=== PATIENT | male | born 1955 | race Two or more races ===

== ENCOUNTER 2024-01-20 07:28 | Emergency (ER) | payer MEDICAID, SELFPAY ==
[2024-01-20] VITALS (10 sets, daily range): BP systolic 98–141; BP diastolic 62–75; PULSE 95–133; RESP 18–20; TEMP -11.7–39.4; O2SAT 95–100; BMI 19.6
--- NOTE | 2024-01-20 08:11 | EDNOTE_ITS ---
ED Male Genitalurinary RME/HPI General Chief complaint: Urogenital-Male Stated complaint: CATHETER PROBLEMS Time Seen by Provider: 01/20/24 07:37 Arrival date/time: 01/20/24 07:28 RME / HPI RME / HPI Narrative: 68 year old male with history of developmental delay, hypertension, hyperlipidemia, bipolar disorder presents to the ED BIBA from skilled nursing for fermin catheter problems today. Per medics, RN at the skilled nursing inserted a fermin catheter ~ 5:30 pm yesterday and noted only blood clots and blood to be draining, no urine. States the nurse attempted to irrigate with no improvement and the fermin catheter was removed. Reportedly this morning patient continues to bleed from his penis, prompting ED visit. Related Data Home Medications ?Medication ?Instructions ?Recorded ?Confirmed Acetaminophen * (TYLENOL *) 2 tab PO Q6HR PRN PAIN #0 tabs 05/26/13 05/07/22 Bisacodyl * (DULCOLAX *) 10 mg PO QDAY PRN CONSTIPATION ##0 05/26/13 05/07/22 Calcium Carbonate/Vitamin D3 1 ea PO TID #0 tabs 05/26/13 05/07/22 (Os-Jhonatan 500+D3 Caplet) chlorhexidine gluconate 0.12 % 15 ml PO QDAY ##0 05/26/13 05/07/22 mouthwash risedronate 35 mg tablet (Actonel) 35 mg PO EVERY TUES #0 tabs 05/26/13 01/20/24 sodium phosphates 19 gram-7 118 ml TN X1 PRN CONSTIPATION ##0 05/26/13 05/07/22 gram/118 mL enema (Fleet Enema) docusate sodium 250 mg capsule 250 mg PO BID #0 caps 05/09/16 05/07/22 (DOK) lactulose 20 gram/30 mL oral 1 ml PO HS ##0 05/09/16 05/07/22 solution polyethylene glycol 3350 17 gram 1 pkt PO HS ##0 05/09/16 01/20/24 oral powder packet (Miralax) simvastatin 20 mg tablet (Zocor) 20 mg PO HS #0 tabs 05/09/16 01/20/24 amitriptyline 25 mg tablet 25 mg PO QDAY 05/07/22 01/20/24 melatonin 1 mg tablet 3 mg PO HS 05/07/22 01/20/24 terbinafine HCl 250 mg tablet 250 mg PO QDAY 05/07/22 05/07/22 finasteride 5 mg tablet 5 mg PO DAILY 01/20/24 01/20/24 metoprolol succinate 25 mg 25 mg PO DAILY 01/20/24 01/20/24 tablet,extended release 24 hr tamsulosin 0.4 mg capsule 0.4 mg PO BID 01/20/24 01/20/24 Previous Rx's ?Medication ?Instructions ?Recorded cephalexin 500 mg capsule 500 mg PO QID #14 caps 05/21/22 cephalexin 500 mg capsule 500 mg PO BID #3 caps 01/20/24 Allergies Allergy/AdvReac Type Severity Reaction Status Date / Time No Known Allergies Allergy Verified 02/25/23 16:44 Review of Systems Review of Systems ROS Unobtainable: unobtainable due to medical condition (Developmental delay ) Past Medical History Past Medical History CARDIAC: Positive Hypercholesterolemia GASTROINTESTINAL: Positive Gastrointestinal Disorders (constipation, duodentisis) MUSCULOSKELETAL: Positive Musculoskeletal Disorders and Osteoporosis HEMATOLOGIC: Positive Clotting Problems (thrombocytopenia) PSYCHO/SOCIAL: Positive Bipolar Disorder Social History SMOKING STATUS: Never smoker ED Exam Narrative Physical exam: GENERAL APPEARANCE: Moans, nonverbal, bed bound HEENT: NC, AT. MMM. EOMI, clear conjunctiva, oropharynx clear. NECK: Supple without lymphadenopathy. No stiffness or restricted ROM. HEART: Normal rate and regular rhythm, normal S1/S1, no m/r/g LUNGS: CTAB, moving air well. No crackles or wheezes are heard. ABDOMEN: Soft, nontender, nondistended with good bowel sounds heard. BACK: No midline C/T/L spine pain or deformity, No CVAT, no obvious deformity. EXTREMITIES: Without cyanosis, clubbing or edema. MUSCULOSKELETAL: diffuse muscle atrophy, no chest tenderness NEUROLOGICAL: Moans, nonverbal, diffuse muscle atrophy Skin: Warm and dry without any rash. Course Quality Measures Current suspected stage: sepsis Possible source: unknown Blood cultures ordered: completed in ED Antibiotic ordered: No Pertinent labs: 01/20/24 11:16 Lactic Acid 1.9 mMol/L (0.4-2.0) Procalcitonin 9.94 H ng/ml (0.0-0.49) sepsis Orders Category Date Time Status Bedside COVID-19 Antigen Test NOW Care 01/20/24 11:09 Active Bedside Influenza A&B Antigen Test NOW Care 01/20/24 11:[address] Screening NOW Care 01/20/24 12:[address] Screening NOW Care 01/20/24 14:00 Active [place] to [place] Routine Care 01/20/24 08:[address] abdomen pelvis w con Stat Exams 01/20/24 12:[address] chest w con Stat Exams 01/20/24 14:00 Completed XR chest 1V Stat Exams 01/20/24 11:08 Completed XR chest 1V Stat Exams 01/20/24 12:27 Completed Blood Culture (Lab) Stat Lab 01/20/24 11:14 Received CBC Stat Lab 01/20/24 11:16 Completed CMP [Comprehensive Metabolic Panel] Stat Lab 01/20/24 11:16 Completed Lactate (Lactic Acid) Stat Lab 01/20/24 11:16 Completed Partial Thromboplastin Time Stat Lab 01/20/24 11:16 Completed Procalcitonin Stat Lab 01/20/24 11:16 Completed Prothrombin Time with INR Stat Lab 01/20/24 11:16 Completed RSV [Respiratory Syncytial Virus Ag] Stat Lab 01/20/24 12:05 Completed Urinalysis Stat Lab 01/20/24 12:32 Completed Acetaminophen Tab [Tylenol Tab] Med 01/20/24 11:44 Discontinued 650 mg PO X1 ONE Ibuprofen Tab [Motrin Tab] Med 01/20/24 14:01 Discontinued 400 mg PO X1 ONE Lidocaine Jelly 2% Urojet [Xylocaine Jelly 2% Urojet] Med 01/20/24 09:12 Discontinued See Dose Instructions TOP X1 ONE Sodium Chloride 0.9% 1000 ml [Ns] 1,000 ml Med 01/20/24 11:08 Discontinued IV 999 mls/hr Reevaluation(s) Reevaluation #1: Clear yellow urine in fermin bag. Attempted rectal disimpaction, stool is too soft, will order enema. Time: 13:30 Reevaluation #2: I have reviewed the CT findings and the thyroid mass with the field coordinator. He is followed at [facility] and work his recommended to follow up for further testing, including laboratory testing and possible biopsy. Patient remains clinically stable throughout the emergency department visit. Re-assessment at the time of disposition demonstrates that the patient is in no acute distress. We reviewed all the results, analysis, and treatment plans. Patient is amenable to discharge. Strict return precautions were outlined. Patient was discharged in stable condition. Time: 16:21 Vital Signs Vital signs: Vital Signs Temperature 99.0 F 01/20/24 07:46 Pulse Rate 108 H 01/20/24 07:46 Respiratory Rate 20 01/20/24 07:46 Blood Pressure 141/75 H 01/20/24 07:46 Pulse Oximetry (%) 100 01/20/24 07:46 Oxygen Delivery Method Room Air 01/20/24 07:46 Pulse ox is 100% on room air which is adequate. Urogenital - Male MDM Narrative MDM Narrative:: IBrigette am scribing for and in the presence of Dr. Haines. Patient data External records reviewed:: [facility] previous records (I reviewed ED visit on 02/25/2023), EMS form and Retirement records ([facility] records) Clinical information provided by:: EMS (Provided prehospital course ) and field coordinator Social determinants that could affect healthcare access:: housing (Resides in skilled nursing) Patient has the following chronic illnesses:: developmental delay, bipolar disorder, hypertension, hyperlipidemia How is presenting disease/condition affected by chronic disease/condition?: exacerbated by Evaluation data The following diagnostics were reviewed and interpreted by me:: lab results Lab and/or radiology exams considered but not ordered:: None Interpretation Summary: Ordering Physician: Tavon Haines MD Date of Service: 01/20/24 Procedure(s): XR chest 1V Accession Number(s): [id number] cc: Tavon Haines MD; Dago Lemon MD; Gavin Sutton PA-C~ Examination: AP chest single view TECHNIQUE: AP portable supine chest single view Exam date and time: January 20, 2024 1117 hours INDICATIONS: Sepsis protocol FINDINGS: The film is rotated severely RPO Normal heart size There is opacity at the right apex Severe osteopenia with extensive glenohumeral joint ossification on the left IMPRESSION: Recommend follow-up true AP chest to exclude pneumonia right apex Dictated By:Dago Lemon MD Signed By:<Electronically signed by Dago Lemon MD in OV>01/20/24 1221 Ordering Physician: Tavon Haiens MD Date of Service: 01/20/24 Procedure(s): CT abdomen pelvis w con Accession Number(s): [id number] cc: Tavon Haines MD; Dago Lemon MD; Gavin Sutton PA-C~ Examination: CT abdomen with intravenous contrast CT pelvis with intravenous contrast 2-D coronal reconstructions 2-D sagittal reconstructions Date and time of exam:January 20, 2024 1214 hours Comparison May 21, 2022. INDICATIONS: Fever hematuria today with abdominal pain CTDI: vol (mGy) 10 DLP: (mGycm) 577 Technique: Multiple axial sections of the abdomen and pelvis have been obtained. 64 slice high-resolution scanner used. 3 mm axial sections have been obtained, post intravenous injection 60 cc Isovue-370 2-D sagittal, coronal reconstructions obtained. Low dose protocols were performed. One or more of the following dose reduction techniques were used; automated exposure control, adjustment of the mA and/or KV according to patient size, use of iterative reconstruction technique. Findings: No focal liver lesions No gallstones Spleen is not enlarged No pancreatic or adrenal mass No hydronephrosis Abundant stool throughout the colon, very large amounts of stool in the rectosigmoid Thickening of the rectal wall Urinary bladder is contracted Left hip bipolar hemiarthroplasty with satisfactory alignment Chronic osteoporotic compression T12 IMPRESSION: No renal or ureteral calculi, no hydronephrosis Large amounts of stool throughout the colon, very large amounts of stool in the rectosigmoid with proctitis pattern Dictated By: Dago Lemon MD Signed By: <Electronically signed by Dago Lemon MD in OV> 01/20/24 1334 Procedure(s): XR chest 1V Accession Number(s): [id number] cc: Tavon Haines MD; Dago Lemon MD; Gavin Sutton PA-C~ Examination: AP chest single view TECHNIQUE: AP portable supine chest single view Exam date and time: January 20, 2024 1259 hours Comparison January 20, 2004 1117 hours INDICATIONS: Sepsis today. FINDINGS: Prominent right superior mediastinal contour, uncertain etiology The trachea is actually displaced to the left secondary to this masslike area Mild prominence left ventricle Mild vascular IMPRESSION: Recommend CT chest post intravenous contrast follow-up to exclude right paratracheal mediastinal mass Dictated By: Dago Lemon MD = Procedure(s): CT chest w con Accession Number(s): [id number] cc: Tavon Haines MD; Dago Lemon MD; Gavin Sutton PA-C~ Examination: CT chest with intravenous contrast 2-D sagittal and coronal reconstructions Exam date and time: January 20, 2024 1505 hours INDICATIONS: Prominent right paratracheal mediastinal region on chest x-ray today CTDI:vol (mGy) 14.7 DLP: (mGycm) 516 Technique: Multiple axial sections of the thorax have been obtained. Sections have been obtained, 3 mm slice thickness. Mediastinal and lung density settings have been obtained. Intravenous contrast administered, 50 cc Isovue-300. 2-D sagittal, coronal images obtained. Low dose protocols were performed. One or more of the following dose reduction techniques were used; automated exposure control, adjustment of the mA and/or KV according to patient size, use of iterative reconstruction technique. Findings: Significantly enlarged right thyroid lobe extending substernal with multiple right thyroid nodules The enlarged right thyroid lobe is indenting and displacing the trachea to the left No thoracic aortic aneurysmal dilatation Pulmonary artery segments are not enlarged No paratracheal tracheobronchial or bronchopulmonary adenopathy 4 mm pulmonary nodule right upper lobe image 147 Atelectasis versus mild pneumonia right base Mild vascular congestion Moderate osteopenia IMPRESSION: Significantly enlarged right thyroid lobe extending substernal Multiple right thyroid nodules 4 mm pulmonary nodule right upper lobe, with this study as baseline recommend 6 month follow-up CT chest without contrast Atelectasis versus mild pneumonia right base Dictated By: Dago Lemon MD Medications / Prescriptions Medications or Prescriptions considered but not ordered:: None Medication administrations:: Medication Administration History Discontinued Medications Acetaminophen (Acetaminophen 325 Mg Tablet) 650 mg PO X1 ONE Stop: 01/20/24 11:45 Last Admin: 01/20/24 11:50 Dose: 650 mg Documented By: DENISE Sodium Chloride (Ns) 1,000 mls @ 999 mls/hr IV .Q1H1M ONE Stop: 01/20/24 12:08 Last Infusion: 01/20/24 13:23 Dose: Infused Documented By: Admin: 01/20/24 11:30 Dose: 999 mls/hr Documented By: DENISE Ibuprofen (Ibuprofen Tab 400 Mg Tablet) 400 mg PO X1 ONE Stop: 01/20/24 14:02 Last Admin: 01/20/24 14:11 Dose: 400 mg Documented By: DENISE Lidocaine HCl (Lidocaine Jelly 2% (Urojet) 10 Ml Tube) 0 ml TOP X1 ONE Stop: 01/20/24 09:13 Last Admin: 01/20/24 09:15 Dose: 10 ml Documented By: DENISE See above Consultations Consultation(s) initiated? (list below): No Diagnosis Urogenital Male Differential Diagnosis: urinary tract infection, acute retention of urine and other (Fermin catheter malfunction ) Most likely diagnosis given after review of the tests above:: UTI Mass of thyroid gland Admission Indicated Admission indicated?: not indicated Admission Request Was there a request for admission?: No Disposition Plan Disposition Plan: Discharge Discharge Attestation Discharge Attestation: The patient and all family members were given an opportunity to ask questions and understood the discharge instructions. Discharge instructions specifically effects, indications for sooner follow up or return to the emergency department, and the expected course of current diagnosis. Patient condition: Stable Discharge Plan Plan Patient Disposition: HOME (Self Care) Patient condition on transfer: Stable Prescriptions/Referrals Prescriptions/Med Rec: New cephalexin 500 mg capsule 500 mg PO BID Qty: 3 0RF No Action risedronate [Actonel] 35 MG tablet 35 mg PO EVERY TUES Qty: 0 Calcium Carbonate/Vitamin D3 (Os-Jhonatan 500+D3 Caplet) 1 EACH tablet 1 ea PO TID Qty: 0 Acetaminophen * (TYLENOL *) 325 MG tablet 2 tab PO Q6HR PRN (Reason: PAIN) Qty: 0 Patient Comments: FOR FEVER OR PAIN Fleet Enema 118 ML enema 118 ml TN X1 PRN (Reason: CONSTIPATION) Qty: 0 chlorhexidine gluconate 480 ML mouthwash 15 ml PO QDAY Qty: 0 Bisacodyl * (DULCOLAX *) 5 MG TABLET.DR 10 mg PO QDAY PRN (Reason: CONSTIPATION) Qty: 0 polyethylene glycol 3350 [Miralax] 12 EA powder in packet 1 pkt PO HS Qty: 0 simvastatin [Zocor] 20 MG tablet 20 mg PO HS Qty: 0 docusate sodium [DOK] 250 MG capsule 250 mg PO BID Qty: 0 lactulose 20 GM/30 ML syrup 1 ml PO HS Qty: 0 cephalexin 500 mg capsule 500 mg PO QID Qty: 14 0RF finasteride 5 mg tablet 5 mg PO DAILY tamsulosin 0.4 mg capsule 0.4 mg PO BID metoprolol succinate 25 mg tablet extended release 24 hr 25 mg PO DAILY terbinafine HCl 250 mg tablet 250 mg PO QDAY amitriptyline 25 mg tablet 25 mg PO QDAY melatonin 1 mg Tablet 3 mg PO HS Referrals: Gavin Sutton PA-C [Primary Care Provider] - In 1 week Problem List Clinical Impression: UTI (urinary tract infection), Mass of thyroid gland Patient/Caregiver Discharge Instructions Education Materials: Common Thyroid Problems, ED Bladder Infection, Male (Adult) Additional Instructions: Follow-up with your primary care doctor in 2 to 3 days for further testing for your thyroid and possible referral to a specialist. You can return to the emergency department sooner if symptoms worsen or if you notice any new, concerning issues Print Language: Sinhala Stand Alone Forms: Shayla Award Info., Patient Portal Info Letter
[2024-01-20] MEDS: LIDOCAINE JELLY 2% (Urojet) 10 ML TUBE TOP (09:15)
--- NOTE | 2024-01-20 11:08 | XR_ITS ---
Examination: AP chest single view TECHNIQUE: AP portable supine chest single view Exam date and time: January 20, 2024 1117 hours INDICATIONS: Sepsis protocol FINDINGS: The film is rotated severely RPO Normal heart size There is opacity at the right apex Severe osteopenia with extensive glenohumeral joint ossification on the left IMPRESSION: Recommend follow-up true AP chest to exclude pneumonia right apex
[2024-01-20 11:29] LABS: Lactate (Lactic Acid) 1.9 mMol/L (0.4-2.0)
[2024-01-20] MEDS: SODIUM CHLORIDE 0.9% 1000 ML 1,000 ML 999 ML IV (11:30)
[2024-01-20 11:33] LABS: Basophils % (Auto) 0 % (0-2.5); Eosinophils % (Auto) 0 % (0-10); Hematocrit 34.9 % (41.0-53.0); Hemoglobin 12.3 g/dL (13.5-16.0); Immature Granulocytes % (Auto) 1 % (0-0); Immature Granulocytes Auto 0.08 Thou/mm3 (0.00-0.00); Lymphocytes # (Auto) 0.2 Thou/mm3 (1.0-4.8); Lymphocytes % (Auto) 2 % (10-50); Mean Corpuscular HGB Conc 35.2 g/dl (31.0-37.0); Mean Corpuscular Hemoglobin 31.1 pg (25.0-35.0); Mean Corpuscular Volume 88 fL (80-100); Monocytes # (Auto) 0.1 Thou/mm3 (0.0-0.8); Monocytes % (Auto) 1 % (0-12); Neutrophils # (Auto) 15.6 Thou/mm3 (1.8-7.7); Neutrophils % (Auto) 97 % (37-80); Nucleated Red Blood Cell % 0 /100 WBC (0); Platelet Count 194 Thou/mm3 (140-440); RDW Standard Deviation 43.1 fL (35.1-43.9); Red Blood Count 3.95 Miln/mm3 (4.50-5.90)
[2024-01-20] MEDS: ACETAMINOPHEN 325 MG TABLET 650 MG PO (11:50)
[2024-01-20 11:52] LABS: Partial Thromboplastin Time 26.7 Seconds (22.0-36.0); Prothrombin Time 11.3 Seconds (9.0-12.2)
[2024-01-20 12:00] LABS: Alanine Aminotransferase 14 U/L (10-49); Albumin/Globulin Ratio 1.4 (1.2-2.2); Alkaline Phosphatase 101 U/L (46-116); Anion Gap 7 (7-16); Aspartate Amino Transferase 21 U/L (0-34); BUN/Creatinine Ratio 20 Ratio (12-20); Bilirubin,Total 0.5 mg/dL (0.3-1.2); Blood Urea Nitrogen 14 mg/dL (9-23); Calcium 10.4 mg/dL (8.3-10.6); Calcium (Corrected) 10.4 mg/dL (8.5-10.1); Carbon Dioxide 24.5 mMol/L (20.0-31.0); Chloride 103 mMol/L (98-107); Creatinine (Component) 0.7 mg/dL (0.6-1.3); Estimated Creatinine Clearance 68.6 mL/min (>60); Globulin 2.9 gm/dL (2.3-3.5); Glucose 135 mg/dL (74-106); Osmolality,Calculated 270 (275-295); Potassium 3.8 mMol/L (3.4-5.1); Procalcitonin 9.94 ng/ml (0.0-0.49); Sodium 134 mMol/L (136-145); Total Protein 6.9 gm/dL (5.7-8.2); eGFR > 60 See Note
--- NOTE | 2024-01-20 12:04 | XR_ITS ---
Examination: CT abdomen with intravenous contrast CT pelvis with intravenous contrast 2-D coronal reconstructions 2-D sagittal reconstructions Date and time of exam:January 20, 2024 1214 hours Comparison May 21, 2022. INDICATIONS: Fever hematuria today with abdominal pain CTDI: vol (mGy) 10 DLP: (mGycm) 577 Technique: Multiple axial sections of the abdomen and pelvis have been obtained. 64 slice high-resolution scanner used. 3 mm axial sections have been obtained, post intravenous injection 60 cc Isovue-370 2-D sagittal, coronal reconstructions obtained. Low dose protocols were performed. One or more of the following dose reduction techniques were used; automated exposure control, adjustment of the mA and/or KV according to patient size, use of iterative reconstruction technique. Findings: No focal liver lesions No gallstones Spleen is not enlarged No pancreatic or adrenal mass No hydronephrosis Abundant stool throughout the colon, very large amounts of stool in the rectosigmoid Thickening of the rectal wall Urinary bladder is contracted Left hip bipolar hemiarthroplasty with satisfactory alignment Chronic osteoporotic compression T12 IMPRESSION: No renal or ureteral calculi, no hydronephrosis Large amounts of stool throughout the colon, very large amounts of stool in the rectosigmoid with proctitis pattern
--- NOTE | 2024-01-20 12:15 | PC.NURSE ---
PT taken to CT.
--- NOTE | 2024-01-20 12:27 | XR_ITS ---
Examination: AP chest single view TECHNIQUE: AP portable supine chest single view Exam date and time: January 20, 2024 1259 hours Comparison January 20, 2004 1117 hours INDICATIONS: Sepsis today. FINDINGS: Prominent right superior mediastinal contour, uncertain etiology The trachea is actually displaced to the left secondary to this masslike area Mild prominence left ventricle Mild vascular IMPRESSION: Recommend CT chest post intravenous contrast follow-up to exclude right paratracheal mediastinal mass
[2024-01-20 12:43] LABS: Collection Type, Urine Catheter; Squamous Epithelial Cell,Urine 0 /hpf (0-5)
[2024-01-20 13:00] LABS: Respiratory Syncytial Virus Ag Negative (Negative)
[2024-01-20 13:12] LABS: Bacteria,Urine 1+; Bilirubin,Urine Negative (Negative); Blood,Urine 3+ (Negative); Color,Urine Yellow (Lt Yel-Yel); Glucose, Urine Negative (Negative); Ketones,Urine Trace (Negative); Leukocyte Esterase,Urine Positive (Negative); Nitrite,Urine Negative (Negative); PH,Urine 6.5 (5.0-7.0); Protein,Urine Trace (Neg - Trace); RBC,Urine 709 /hpf (0-3); Specific Gravity,Urine 1.032 (1.001-1.035); Urobilinogen,Urine Negative mg/dL (0.0-1.0); WBC,Urine 263 /hpf (0-5)
[2024-01-20 13:19] LABS: Clarity,Urine Hazy (Clear/Hazy)
--- NOTE | 2024-01-20 14:00 | XR_ITS ---
Examination: CT chest with intravenous contrast 2-D sagittal and coronal reconstructions Exam date and time: January 20, 2024 1505 hours INDICATIONS: Prominent right paratracheal mediastinal region on chest x-ray today CTDI:vol (mGy) 14.7 DLP: (mGycm) 516 Technique: Multiple axial sections of the thorax have been obtained. Sections have been obtained, 3 mm slice thickness. Mediastinal and lung density settings have been obtained. Intravenous contrast administered, 50 cc Isovue-300. 2-D sagittal, coronal images obtained. Low dose protocols were performed. One or more of the following dose reduction techniques were used; automated exposure control, adjustment of the mA and/or KV according to patient size, use of iterative reconstruction technique. Findings: Significantly enlarged right thyroid lobe extending substernal with multiple right thyroid nodules The enlarged right thyroid lobe is indenting and displacing the trachea to the left No thoracic aortic aneurysmal dilatation Pulmonary artery segments are not enlarged No paratracheal tracheobronchial or bronchopulmonary adenopathy 4 mm pulmonary nodule right upper lobe image 147 Atelectasis versus mild pneumonia right base Mild vascular congestion Moderate osteopenia IMPRESSION: Significantly enlarged right thyroid lobe extending substernal Multiple right thyroid nodules 4 mm pulmonary nodule right upper lobe, with this study as baseline recommend 6 month follow-up CT chest without contrast Atelectasis versus mild pneumonia right base
[2024-01-20] MEDS: IBUPROFEN TAB 400 MG TABLET PO (14:11)
== END 2024-01-20 17:35 | disposition home or self-care (01) ==
PROVIDERS: Emergency Provider Emergency Medicine; PCP Physician Assistant
DX: N39.0 Urinary tract infection, site not specified (principal); E04.2 Nontoxic multinodular goiter; R91.1 Solitary pulmonary nodule; K59.00 Constipation, unspecified
CPT/HCPCS: 51702; 36415; 71045; 71260; 74177; 80053; 81001; 83605; 84145; 85025; 85610; 85730; 87040; 87077; 87186; 87400; 87634; 87811; 96360; 96361; 99285; A4649; J7030; Q9967; A9270

== ENCOUNTER → 2024-01-28 | Outpatient (CLI) | payer MEDICAID, SELFPAY ==
--- NOTE | 2024-01-28 09:51 | XR_ITS ---
Examination: AP lateral chest 2 views Technique one AP lateral chest sitting 2 views Exam date and time: January 28, 2024 0954 hours INDICATIONS: Coughing beginning 2 weeks ago. FINDINGS: Normal heart size The lungs are clear The osseous structures are demineralized IMPRESSION: No pneumonia identified
== END | disposition home or self-care (01) ==
PROVIDERS: Referring Provider Family Medicine; Visit Provider Family Medicine
DX: R05.1 Acute cough (principal)
CPT/HCPCS: 71046

== ENCOUNTER 2024-04-01 08:30 | Outpatient (RCR) | payer MEDICAID, SELFPAY ==
--- NOTE | 2024-03-31 08:45 | XR_ITS ---
Examination: Nuclear medicine thyroid scan and uptake Exam date and time: April 01, 2024 0854 hours INDICATIONS: Hypertension, CT examination of large right thyroid extending substernal with multiple nodules TECHNIQUE AND FINDINGS: Oral administration 290 uCi I-123 6 hour 24-hour uptake values recorded. 6 hour uptake 4.6% normal range 6-24% 24 hour uptake 10.9 cm normal range 10-36% Scans demonstrate increased uptake lower central and diffusely left thyroid lobe IMPRESSION: Low-normal thyroid uptake values, recommend thyroid sonography follow-up
== END 2024-04-06 23:59 | disposition home or self-care (01) ==
LOC: SNUC 08:30
PROVIDERS: PCP Family Medicine; Referring Provider Family Medicine; Visit Provider Family Medicine
DX: E04.1 Nontoxic single thyroid nodule (principal)
CPT/HCPCS: 78013; A9516

== ENCOUNTER → 2025-01-04 | Outpatient (CLI) | payer MEDICAID, SELFPAY ==
--- NOTE | 2025-01-04 10:30 | XR_ITS ---
Examination: CT chest, without intravenous contrast. Sagittal and coronal 2-D reconstructions. Exam date and time: January 04, 2025, 1026 hours, comparison January 20, 2024 INDICATIONS: Diagnosis malignant neoplasm lower right lobe bronchus, 4 mm pulmonary nodule right upper lobe on CT chest January 20, 2024 CTDI:vol (mGy) 12.0 DLP: (mGycm) 421 6 Technique: Multiple 3.0 mm axial sections of the chest to been obtained. Bone and lung density settings are obtained. Sagittal and coronal 2-D reconstructions have been obtained. Low dose protocols were performed. One or more of the following dose reduction techniques were used; automated exposure control, adjustment of the mA and/or KV according to patient size, use of iterative reconstruction technique. Findings: Again noted massive right thyromegaly extending substernal impingement component displacing the trachea No thoracic aortic aneurysmal dilatation Pulmonary artery segments are not enlarged. No paratracheal tracheobronchial or bronchopulmonary adenopathy. Right apical scarring Stable 4 mm pulmonary nodule right upper lobe No new pulmonary nodules No pneumonia or pulmonary edema No visualized liver or splenic lesion No gallstones No pancreatic or adrenal mass Mild kyphosis dorsal spine IMPRESSION: Again noted massive right thyromegaly extending substernal Stable 4 mm pulmonary nodule right upper lobe No new pulmonary nodules
== END | disposition home or self-care (01) ==
PROVIDERS: PCP Physician Assistant; Referring Provider Physician Assistant; Visit Provider Physician Assistant
DX: E01.0 Iodine-deficiency related diffuse (endemic) goiter (principal); R91.1 Solitary pulmonary nodule; Z71.82 Exercise counseling
CPT/HCPCS: 71250